=== PATIENT | female | born 1975 | race African-American/Black ===

== ENCOUNTER 2017-12-21 10:55 | Outpatient (CLI) | payer OTHER ==
[2017-12-21 12:34] LABS: Hemoglobin 10.8 g/dL (12.0-16.0); Mean Corpuscular HGB CONC 33.1 g/dL (32.0-36.0); Mean Corpuscular Hemoglobin 28.2 pg (27.0-31.0); Mean Corpuscular Volume 85.1 fL (78.0-98.0); Platelet Count 158 thou/uL (130-400); RBC Distribution Width 20.4 % (11.5-14.5); Red Blood Cell (RBC) Count 3.84 mill/uL (4.20-5.40); White Blood Cell (WBC) Count 4.1 thou/uL (4.8-10.8)
[2017-12-21 13:01] LABS: Anion Gap 9 mmol/L (10-20); BUN (Urea Nitrogen) 11 mg/dL (7.0-18.7); Calc. Creatinine Clearance 0 mL/min (70-130); Calcium 8.9 mg/dL (7.8-10.44); Carbon Dioxide 25 mmol/L (22-29); Chloride 107 mmol/L (98-107); Estimated GFR-MDRD Greater than 90; Glucose 93 mg/dL (70-105); Potassium 3.6 mmol/L (3.5-5.1); Sodium 137 mmol/L (136-145)
== END 2017-12-21 10:56 | disposition home or self-care (01) ==
LOC: LABBT 10:55
PROVIDERS: ATTEND Obstetrics & Gynecology
DX: Z01.812 Encounter for preprocedural laboratory examination (principal); D25.9 Leiomyoma of uterus, unspecified; N92.0 Excessive and frequent menstruation with regular cycle; R10.2 Pelvic and perineal pain; D64.9 Anemia, unspecified
CPT/HCPCS: 80048; 85027; 86850; 86900; 86901

== ENCOUNTER 2017-12-21 11:15 | Inpatient (IN) | payer OTHER ==
--- NOTE | 2017-12-21 07:44 | HP ---
She is scheduled for surgery on 12/22/2017. HISTORY OF PRESENT ILLNESS: Ms. Walker is a 42-year-old -[place] woman with history of u terine fibroids who has been having increasingly heavy and painful periods and pelvic pain. She was seen in my office on 10/07 for annual exam, also reported the change in her symptoms. She has had a history of chronic anemia due to the menorrhagia and was noted to be hemodynamically stable, but ve ry anemic with hemoglobin of 6.6, hematocrit of 24.6%. Due to the low hemoglobin and ferritin showing, it being a very low iron store level of 5. She was r eferred for IV iron [facility] Her prior past medical and surgical history of gallbladder cholecystectomy and tubal ligation. It wa s noted chronic anemia due to menorrhagia. She is a , 3 vaginal deliveries. She had complicati ons. The last with significant hyperemesis gravidarum, requiring TPN therapy at some point then resolved in delivery of the viable term infant. .
--- NOTE | 2017-12-21 10:22 | HP ---
HISTORY OF PRESENT ILLNESS: Ms. Walker is a 42-year-old female, , prior tu bal ligation who has had a long history of uterine fibroids. She was seen on 10/07/2017 for her nikkie al and also for the complaints of heavy bleeding and pelvic pain. At that time, she was examined and was noted to have a 20-24 week sized uterine fibroids with minimal mobility. She is reporting very heavy cycles and pelvic pain and pressure symptoms. PAST MEDICAL HISTORY: Noted chronic anemia from menorrhagia. She has had a remote history of asthma in earlier years, it now has resolved. PAST SURGICAL HISTORY: Cholecystectomy and tubal ligation. SOCIAL HISTORY: Nonsmoker, no significant alcohol use. She is employed and working assistant associate full professor. CURRENT MEDICATIONS: None, but now the patient has been started on iron and has received IV iron th erapy from Dr. Campos at [facility] for a noted hemoglobin of 6.2 on screening. PHYSICAL EXAMINATION: VITAL SIGNS: Blood pressure is 120/82, pulse 83 and regular, respirations 16, height 67 inches, weig ht 163 pounds with BMI 25.5. GENERAL: Well-developed, well-nourished female with some paleness to her skin. NECK: She had no thyroid masses or enlargement. No neck masses. CHEST: Clear to auscultation. HEART: Regular rate and rhythm. S1, S2 heart sounds. BREASTS: No masses, nipple discharge or skin changes. ABDOMEN: Soft. She had a palpable uterine mass about 2-3 cm above the umbilicus, minimal mobility. PELVIC: Vulva and vagina had no lesions. Cervix had no lesions. Pap smear obtained was normal. A large uterine mass consistent with uterine fibroids were noted. Minimal mobility from the pelvic elinor ewalls. An ultrasound was performed showing her uterus to measure approximately 18 x 10 cm with a 6.3 x 6.7 c m anterior fibroid, a 5.4 x 4.7 posterior uterine fibroid and a 6.6 x 7.34 fundal uterine fibroid. E ndometrial lining was 10 mm. Right and left adnexa appeared normal. ASSESSMENT: This is a 42-year-old female with 22-week sized uterine fibroids, shadia rhagia, pelvic pain, dysmenorrhea and significant anemia from her menorrhagia, desiring definitive pillai rgical therapy. PLAN: Proceed with a total abdominal hysterectomy with bilateral salpingectomy of the tubal remnants . Plan for ovarian preservation as long as ovaries are normal. We will also have the patient contin ue IV iron therapy as indicated. This would be received postoperatively if still indicated. She mayelin l also have On-Q pump for pain management postoperatively. Risks, benefits of procedure discussed in detail. She is set for surgery on 12/22/2017.
[2017-12-21 11:31] VITALS: BMI 25.8
[2017-12-22] MEDS ORDERED: CEFAZOLIN/Water 2 GM/20 ML SYRINGE ONE (08:31)
[2017-12-22] MEDS ORDERED: CeleCOXIB 100 MG CAP ONE (08:32)
[2017-12-22] MEDS ORDERED: Gabapentin 300 MG CAP ONE (08:32)
[2017-12-22] MEDS ORDERED: Scopolamine 1.5 mg/72 hour Patch ONE (08:33)
[2017-12-22] MEDS ORDERED: Famotidine/PF 20 mg/2ml Vial ONE (08:33)
[2017-12-22] MEDS ORDERED: Midazolam HCl 2 mg/2 ml Vial ONE (08:34)
[2017-12-22] MEDS ORDERED: Bupivacaine HCl 0.5%/Epinephrine 1:200,000/PF 30 ml Vial ONE (09:38)
[2017-12-22] MEDS ORDERED: Fentanyl 250 MCG/5 ML VIAL ONE (09:46)
[2017-12-22] MEDS ORDERED: Fentanyl 100 MCG/2 ML VIAL ONE ×3 (12:08→13:05)
[2017-12-22] MEDS ORDERED: Bisacodyl 10 MG SUPP PR PRN (12:14)
[2017-12-22] MEDS ORDERED: Zolpidem Tartrate 5 MG TAB PO PRN (12:14)
[2017-12-22] MEDS ORDERED: Promethazine HCl 25 MG/ML VIAL IM PRN (12:14)
[2017-12-22] MEDS ORDERED: diphenhydrAMINE 25 MG CAP PO PRN (12:14)
[2017-12-22] MEDS ORDERED: traMADol HCl 50 MG TAB PO PRN (12:14)
[2017-12-22] MEDS ORDERED: Promethazine HCl 25 MG/ML VIAL IM/IV PRN (12:29)
[2017-12-22] MEDS ORDERED: Non-Formulary Medication 1 EACH PO PRN (12:29)
[2017-12-22] MEDS ORDERED: Ondansetron HCl/PF 4 MG/2 ML Vial IVP PRN (12:29)
[2017-12-22] MEDS ORDERED: Ropivacaine HCl/PF 750 ML in Premix Bag 1 BAG NERVE BLCK SCH (12:45)
[2017-12-22] MEDS ORDERED: Morphine 4 MG/ML VIAL IV PRN (12:45)
[2017-12-22] MEDS: Ketorolac Tromethamine 30 MG/ML VIAL IVP SCH ×3 (13:13→23:06)
[2017-12-22] MEDS ORDERED: Lidocaine 1% PF 5 ML VIAL ONE (13:37)
[2017-12-22] MEDS ORDERED: Ondansetron HCl/PF 4 MG/2 ML Vial ONE (13:37)
[2017-12-22] MEDS ORDERED: Glycopyrrolate 0.2 MG/ML 5 ML SYRINGE ONE (13:37)
[2017-12-22] MEDS ORDERED: PROPOFOL 200 MG/20 ML VIAL ONE (13:37)
[2017-12-22] MEDS ORDERED: Ketorolac Tromethamine 30 MG/ML VIAL ONE (13:37)
[2017-12-22] MEDS ORDERED: Dexamethasone 20 MG/5 ML VIAL ONE (13:37)
[2017-12-22] MEDS: Sodium Chloride 0.9% 1,000 ML IV SCH ×3 (13:53→22:37)
--- NOTE | 2017-12-22 14:05 | OP ---
DATE OF PROCEDURE: 12/22/2017 PREOPERATIVE DIAGNOSES: 1. A 42-year-old female, G3, P3, with symptomatic 20-week uterine fibroids. 2. Menorrhagia, pelvic pain, and chronic anemia due to chronic blood loss. 3. Desires definitive surgical therapy. PROCEDURE PERFORMED: Total abdominal hysterectomy with bilateral salpingectomy. SURGEON: Kala Ritchie M.D. EN[employer]GY DERIVATIVES TRADER SURGEON: Sharon Cherry M.D. ANESTHESIA: General endotracheal. ESTIMATED BLOOD LOSS: 200 mL. COMPLICATIONS: None. COUNTS: Correct x2. ANTIBIOTICS: Ancef 2 grams negotiations director to the OR. On-Q subfascial pump for post anesthesia pain care. FINDINGS: 1. Twenty week uterus with multiple large uterine fibroids intramural located. 2. Normal appearing bilateral fallopian tubes and ovaries. 3. Clear urine present in York catheter post-procedure and bilateral ureteral peristalsis visualize d post-procedure. DISPOSITION: To the recovery room stable. DESCRIPTION OF OPERATIVE PROCEDURE: The patient previously received informed consent in regards to denny nevarez. She was taken back to the operating room where she received a general endotracheal anestheti c agent without complications. She was placed in the supine position, prepped and draped in usual st erile fashion. SCDs and Yrok catheter was placed during the prep process. A vertical midline incis ion was made. This was carried up to just below the umbilicus. The fascia was then nicked in midlin e. Fascial incision was extended superiorly and inferiorly. The peritoneal cavity was entered. Per itoneal incision was extended. The uterus was then manipulated through the abdominal incision and a O'Linden-O'Farris retractor was placed. Bowel was packed away for visualization operative field si te. At this time, the right round ligament was identified. It was suture ligated with 0 Vicryl sutu re and medial to this the round ligament that was incised with Bovie cautery. The anterior leaf of t he broad ligament was entered. Vesicouterine peritoneal layer was incised with Metzenbaum scissors. The uterine vessels were then initiated for skeletonization. A defect in the broad ligament just be low the uterine ovarian ligament was made and a Maura clamp was placed through this. The pedicle wa s clamped and then cut and it was suture ligated with a ____ stitch along with a free tie of 0 Vicryl , securing hemostasis of the right utero-ovarian ligament. Again, the uterine vessels were skeletoni zed and then the uterine vessels were clamped just above the internal cervical os with Maura clamps. This was transected and suture ligated for hemostasis. The bladder continued to be dissected atrau matically anteriorly past the cervical vaginal junction. The left round ligament again at this time was suture ligated, it was transected medially to this with Bovie cautery and the anterior leaf of br oad ligament was entered. Vesicouterine peritoneum was incised both sharply and bluntly dissecting i t past the cervical vaginal angle. A defect in the broad ligament underlying the left uterine ovaria n ligament was made and a Maura clamp was placed over the pedicle site clamped and then transected a nd suture ligated with ____ suture along with a free tie securing hemostasis. The uterine vessels we re skeletonized with Metzenbaum scissors on the left side, isolating these and then the Maura clamp was placed in the internal cervical os region. The vessels were transected and suture ligated securi ng hemostasis. At this time, the bulk of the uterine body superior to the recent uterine vessel johansen section was then excised with Bovie cautery allowing for better visualization of the pelvic cervical stump. After this was obtained, the Lawrence clamps were then placed medially to the previous uter ine vessel clamps and the cardinal ligament complex along with the uterosacral ligament complex were clamped bilaterally, transected, and suture ligated in serial fashion until the cervical vaginal angl es were reached. The bladder was found to be well past this area prior to placement of the Maura cl amps. The Maura clamps were placed in the vaginal angle and the remainder of the cervical stump was removed with Barrow scissors. Hofmeister sutures were then placed at the bilateral vaginal angles and then intervening [id number] sutures were placed in the remaining of the medial aspects of the v aginal cuff, securing hemostasis. The pedicle sites again were noted to be hemostatic. The remainde r of the fallopian tubes were then clamped with a Debby clamp, transected, and free ties were placed over the mesosalpinx securing hemostasis. The pelvis was irrigated. Hemostasis was confirmed. The O'Linden-O'Farris retractor was then removed. The lap sponges were removed and counts were correct . The peritoneum was then closed with 2-0 Vicryl suture and then superior edge of the fascia was the n initiated closure with a #1 PDS suture. The On-Q double lumen pain pump catheters needles were the n placed subfascially superior to the peritoneal layer. The fascia was then closed in running contin uous fashion just about 2/3 passed below from the lower inferior edge. The needles of the ON-Q pump catheters were removed. The inferior edge of the fascia was then closed with another #1-0 PDS suture meeting in the midline with complete closure of the fascia was secured. The pain catheters were the n placed through the needle guides and then these were removed. The subcutaneous tissue was irrigate d and intervening [id number] sutures were placed for closure of the subcutaneous tissue. The sk in was closed with felix. Hemostasis was confirmed. The patient was then awakened from anesthesia and transferred to recovery in stable condition.
[2017-12-23] MEDS: Ketorolac Tromethamine 30 MG/ML VIAL IVP SCH ×3 (05:26→18:24)
[2017-12-23 06:12] LABS: Hemoglobin 9.3 g/dL (12.0-16.0); Mean Corpuscular HGB CONC 34.3 g/dL (32.0-36.0); Mean Corpuscular Hemoglobin 29.2 pg (27.0-31.0); Mean Corpuscular Volume 85.2 fL (78.0-98.0); Mean Platelet Volume 7.4 fL (7.4-10.4); Platelet Count 152 thou/uL (130-400); RBC Distribution Width 19.8 % (11.5-14.5); White Blood Cell (WBC) Count 8.4 thou/uL (4.8-10.8)
[2017-12-23] MEDS: Sodium Chloride 0.9% 1,000 ML IV SCH ×2 (06:51→21:02)
--- NOTE | 2017-12-23 07:44 | PDOC.EVN ---
Event Note - Event Note Event Note: Doing well. Pain under control. No nausea O:AFVSS HCT 27.2... abd soft/non distended. on q pump in place. bandage dry A/P Post op day 1-PRAKASH...Doing well. Ambulate/d c brown. Advance diet. Possible d /c home thie evening if progressing well.
[2017-12-23] MEDS: Simethicone Chewable 80 MG TAB PO PRN ×2 (12:48→21:00)
[2017-12-23] MEDS: traMADol HCl 50 MG TAB PO PRN ×2 (13:05→20:58)
[2017-12-24] MEDS: Ketorolac Tromethamine 30 MG/ML VIAL IVP SCH ×3 (00:23→11:46)
[2017-12-24] MEDS: Sodium Chloride 0.9% 1,000 ML IV SCH ×2 (05:52→13:19)
--- NOTE | 2017-12-24 08:01 | PDOC.EVN ---
Event Note - Event Note Event Note: Tolerating diet. Passing flatus. Good pain control with ON Q Pump. O:AFVSS Pathology:benign uterine fibroids and adenomyosis Abd:soft/non distended. Incision clean, dry, intact. A/P:Post op day 2 from PRAKASH. Doing well. D/c home. F/u one week for staple removal and 6 weeks.
--- NOTE | 2017-12-24 09:04 | DIS ---
DIAGNOSIS: 1. Symptomatic 20-week uterine fibroids. 2. Chronic anemia due to menorrhagia. 3. Pelvic pain. 4. Dysmenorrhea. PROCEDURE PERFORMED: Total abdominal hysterectomy, bilateral salpingectomy, On-Q pump for pain manag ement. SUMMARY OF HOSPITAL COURSE: Ms. Walker is a 42-year-old female with long histor y of heavy menorrhagia due to uterine fibroids that have progressively worsened. She had previously received IV iron therapy prior to this and for severe anemia noted with a hemoglobin of 6.2. Due to the size of the fibroids she underwent a total abdominal hysterectomy with bilateral salpingectomy on 12/22/2017. Her preop hematocrit was 32, postop hematocrit was 27%. She was hemodynamically stable . She was having good pain control with the On-Q pump and minimal oral narcotic use was required. S he was ambulating, voiding without difficulty, postop day #1 and was tolerating a regular diet. She was discharged the morning of postop day #2. She has a followup in 1 week for staple removal and 6 w eeks postop. Pathology did show benign leiomyomata of the uterus along with adenomyosis.
[2017-12-24 11:51] VITALS: BP 113/71; TEMP 98.3
[2017-12-24] MEDS: traMADol HCl 50 MG TAB PO PRN (14:23)
[2017-12-27] MEDS ORDERED: Ibuprofen 800 MG TAB PO SCH (21:00)
== END 2017-12-24 14:33 | disposition home or self-care (01) | DRG 743 ==
LOC: SURG A 12-22 07:43 → 3SE 12-22 13:43
PROVIDERS: ADMIT Obstetrics & Gynecology; ATTEND Obstetrics & Gynecology
PROC: 0UT90ZZ Resection of Uterus, Open Approach (ICD-10-PCS; principal; 2017-12-22)
PROC: 0UTC0ZZ Resection of Cervix, Open Approach (ICD-10-PCS; 2017-12-22)
PROC: 0UT70ZZ Resection of Bilateral Fallopian Tubes, Open Approach (ICD-10-PCS; 2017-12-22)
DX: D25.9 Leiomyoma of uterus, unspecified (principal); N92.0 Excessive and frequent menstruation with regular cycle; D50.0 Iron deficiency anemia secondary to blood loss (chronic)
CPT/HCPCS: 36415; 85027; 88307; A4216; J0670; J1100; J1885; J2001; J2250; J2405; J2704; J2795; J3010; S0028